=== PATIENT | female | born 1955 | race American Indian/Alaskan Native ===

== ENCOUNTER 2019-03-05 00:50 | Emergency (ER) | payer MEDICARE ==
[2019-03-05] MEDS ORDERED: NACL 0.9% 1000 ML 1,000 ML IV ONE (01:01)
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
--- NOTE | 2019-03-05 01:24 | XRay Report ---
CHEST 1 VIEW INDICATION / CLINICAL INFORMATION: Altered Mental Status. COMPARISON: None available. FINDINGS: SUPPORT DEVICES: None. HEART / MEDIASTINUM: No significant abnormality. LUNGS / PLEURA: No significant pulmonary or pleural abnormality. No pneumothorax. ADDITIONAL FINDINGS: No significant additional findings. IMPRESSION: 1. No acute findings. Signer Name: Brennon Singleton MD Signed: 03/05/2019 1:19 AM Workstation Name: [id number]
[2019-03-05 01:28] LABS: Basophils % (Auto) 0.9 % (0.0-1.8); Eosinophils % (Auto) 0.6 % (0.0-4.3); Hematocrit 40.4 % (30.3-42.9); Hemoglobin 13.7 gm/dl (10.1-14.3); Mean Corpuscular HGB Conc 34 % (30-34); Mean Corpuscular Hemoglobin 32 pg (28-32); Mean Corpuscular Volume 95 fl (79-97); Monocytes # (Auto) 0.3 K/mm3 (0.0-0.8); Monocytes % (Auto) 6.3 % (0.0-7.3); Platelet Count 206 K/mm3 (140-440); Red Blood Count 4.26 M/mm3 (3.65-5.03); Red Cell Distribution Width 14.7 % (13.2-15.2)
[2019-03-05 01:39] LABS: INR 0.98 (0.87-1.13)
[2019-03-05 01:48] LABS: Bilirubin,Urine NEG (Negative); Blood,Urine MOD (Negative); Color,Urine Yellow (Yellow); Mucus,Urine FEW /HPF; Urobilinogen,Urine < 2.0 mg/dL (<2.0)
[2019-03-05 01:50] LABS: Alanine Aminotransferase 18 units/L (7-56); BUN/Creatinine Ratio 42; Blood Urea Nitrogen 25 mg/dL (7-17); Calcium 9.4 mg/dL (8.4-10.2); Hemolysis Index 2
--- NOTE | 2019-03-05 02:00 | XRay Report ---
LUMBAR SPINE, AP AND LATERAL VIEWS 03/05/2019 INDICATION / CLINICAL INFORMATION: MAIN: bilateral leg weakness altered mental status limited mobility . COMPARISON: None available. FINDINGS: Disc interspaces and bony alignment are well-maintained. No fracture or other skeletal abnormality of the lumbosacral spine. Signer Name: Brennon Singleton MD Signed: 03/05/2019 1:55 AM Workstation Name: [email or web address]
[2019-03-05] MEDS: TYLENOL PO ONE ×2 (03:25→03:29)
[2019-03-05] MEDS ORDERED: TYLENOL ONE (03:29)
--- NOTE | 2019-03-05 03:38 | Cat Scan Report ---
CT head/brain wo con INDICATION / CLINICAL INFORMATION: Altered Mental Status. TECHNIQUE: All CT scans at this location are performed using CT dose reduction for ALARA by means of automated e xposure control. COMPARISON: None available. FINDINGS: No intracranial hemorrhage. No abnormal extra-axial fluid collection. The ventricular system and basilar cisterns are normal. No evidence of mass effect or territorial infarction. Osseous structures are normal. Visualized paranasal sinuses are clear. IMPRESSION: 1. No acute intracranial abnormality. Signer Name: Brennon Singleton MD Signed: 03/05/2019 3:34 AM Workstation Name: [id number]
[2019-03-05] MEDS ORDERED: IBUPROFEN PO ONE ×2 (05:28→05:31)
[2019-03-05] MEDS ORDERED: MILK OF MAGNESIA PO PRN (08:31)
[2019-03-05] MEDS ORDERED: ALUM-MAG HYDROX-SIMETH 200-200-20MG/5ML PO PRN (08:31)
[2019-03-05] MEDS: TYLENOL PO PRN ×2 (08:41→17:18)
--- NOTE | 2019-03-05 17:42 | XRay Report ---
AP and upright abdomen INDICATION: Abdominal pain for several weeks FINDINGS: The bowel gas pattern is normal with no ileus or obstruction. No free air or significant ai r-fluid levels. No renal or ureteral calculi. There is only a moderate amount of stool throughout the colon. Pelvic calcifications appear to be phleboliths. No significant abnormality. Signer Name: Morgan Oliver MD Signed: 03/05/2019 5:38 PM Workstation Name: [id number]
--- NOTE | 2019-03-05 21:16 | Cat Scan Report ---
CT ABDOMEN AND PELVIS WITH IV CONTRAST, 03/05/2019 INDICATION: Generalized abdominal pain and left upper quadrant pain for several months. TECHNIQUE: Following the administration of intravenous contrast, multiple axial CT images of the abdo men and pelvis were acquired. Sagittal and coronal reformats were obtained. All CT performed at this facility utilize dose reduction techniques including automated exposure control, iterative reconstru ction and weight based dosing when appropriate to reduce patient radiation dose to as low as reasonab ly achievable. COMPARISON: Abdominal radiograph, 03/05/2019 FINDINGS: Limited imaging of the bilateral lung bases demonstrates no evidence of acute abnormality. Abdomen: The liver, gallbladder, spleen and pancreas show no definitive evidence of acute abnormality . The common bile duct is mildly enlarged, measuring 8-9 mm. Bilateral adrenal glands and bilateral k idneys show no definitive evidence of acute abnormality. There is a moderate amount of retained stool noted throughout the colon. Pelvis: There is a significant amount of retained stool throughout the distal colon and within the re ctal vault. No large amount of free pelvic fluid is visualized. The urinary bladder appears within no rmal limits. Evaluation of bony structures shows no definitive acute bony abnormality. Evaluation of soft tissue s tructures shows no evidence of acute soft tissue abnormality. IMPRESSION: 1. Significant amount of retained stool throughout the colon and rectal vault suggesting constipation with possible fecal impaction. 2. Mildly dilated common bile duct of indeterminate etiology and clinical significance. Signer Name: Sayda Gomez MD Signed: 03/05/2019 9:11 PM Workstation Name: [id number]
[2019-03-05] MEDS ORDERED: LANTUS SUB-Q SCH (22:00)
[2019-03-06] MEDS ORDERED: NORVASC PO ONE (17:23)
[2019-03-06] MEDS ORDERED: NEURONTIN PO ONE (17:23)
[2019-03-06] MEDS ORDERED: HALFPRIN EC PO ONE (17:30)
[2019-03-06] MEDS ORDERED: MIRALAX 3350 PO ONE (17:30)
[2019-03-06] MEDS ORDERED: BABY ASPIRIN ONE (18:35)
[2019-03-06 18:43] VITALS: BP 119/75
== END 2019-03-06 20:14 | disposition home or self-care (01) ==
LOC: ED 00:50
DX: M79.601 Pain in right arm (principal); R10.9 Unspecified abdominal pain; R53.1 Weakness; R62.7 Adult failure to thrive; M79.661 Pain in right lower leg; R11.2 Nausea with vomiting, unspecified; I10 Essential (primary) hypertension; E11.9 Type 2 diabetes mellitus without complications; E78.00 Pure hypercholesterolemia, unspecified; Z98.890 Other specified postprocedural states; Z86.73 Personal history of transient ischemic attack (TIA), and cerebral infarction without residual deficits
CPT/HCPCS: 36415; 70450; 71045; 72100; 74019; 74177; 80053; 81001; 82140; 82550; 82962; 84443; 84484; 85025; 85610; 87040; 87086; 93005; 93010; 96360; 96361; 96372; 99285; A9270; J7030; Q9967; J1815